=== PATIENT | male | born 1995 | race Two or more races ===

== ENCOUNTER 2018-01-01 18:46 | Emergency (ER) | payer SELFPAY ==
[~2018-01-01] VITALS: Ht 175.3 cm; Wt 59.0 kg
[2018-01-01 18:57] VITALS: BP 120/64
[2018-01-01] MEDS ORDERED: BACITRACIN-P28.35 GM TP (19:16)
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
[2018-01-01 19:29] VITALS: BP 120/64
== END 2018-01-01 19:29 ==
LOC: EMR 19:00
DX: S00.81XA Abrasion of other part of head, initial encounter (principal); S00.211A Abrasion of right eyelid and periocular area, initial encounter; Y04.2XXA Assault by strike against or bumped into by another person, initial encounter
CPT/HCPCS: 99283